=== PATIENT | female | born 1965 | race Caucasian/White ===

== ENCOUNTER → 2016-08-11 | Outpatient (CLI) | payer BC | LOC: FIMAGING 09:38 | PROVIDERS: ATTEND Obstetrics & Gynecology | DX: N83.201 Unspecified ovarian cyst, right side (principal); N83.202 Unspecified ovarian cyst, left side; N95.0 Postmenopausal bleeding ==

== ENCOUNTER → 2017-09-07 | Outpatient (CLI) | payer BC | LOC: BMCIMAGING 14:28 | PROVIDERS: ATTEND Internal Medicine | DX: Z12.31 Encounter for screening mammogram for malignant neoplasm of breast (principal); Z80.3 Family history of malignant neoplasm of breast ==

== ENCOUNTER → 2018-09-09 | Outpatient (CLI) | payer BC | LOC: FIMAGING 10:29 ==